=== PATIENT | male | born 1955 | race Caucasian/White ===

== ENCOUNTER → 2017-01-31 | Outpatient (CLI) | payer BC, OTHER | LOC: FIMAGING 11:41 | PROVIDERS: ATTEND Physician Assistant | DX: R05 Cough (principal); Z98.890 Other specified postprocedural states ==

== ENCOUNTER → 2017-02-09 | Outpatient (CLI) | payer BC | LOC: FIMAGING 12:51 | PROVIDERS: ATTEND Physician Assistant | DX: I77.819 Aortic ectasia, unspecified site (principal) ==